=== PATIENT | male | born 1950 | race Caucasian/White ===

== ENCOUNTER 2020-11-07 16:39 | Outpatient (RCR) | payer MEDICARE, SELFPAY ==
[2020-11-07] MEDS: COVID-19 VACC, MRNA(PFIZER)/PF 30 MCG/0.3 ML SYRINGE IM (12:29)
[2020-11-28] MEDS: COVID-19 VACC, MRNA(PFIZER)/PF 30 MCG/0.3 ML SYRINGE IM (12:39)
== END 2021-02-06 23:59 ==
LOC: IMMUN 16:39
PROVIDERS: PCP Preventive Medicine Occupational Medicine; Referring Provider Family Medicine; Visit Provider Family Medicine
DX: Z23 Encounter for immunization (principal)
CPT/HCPCS: 0001A; 0002A; 91300